=== PATIENT | female | born 1975 | race Caucasian/White ===

== ENCOUNTER 2016-11-08 11:08 | Day surgery (SDC) | payer OTHER ==
[2016-11-08] VITALS (13 sets, daily range): BP systolic 103–122; BP diastolic 55–66; PULSE 74–94; RESP 16–26; Ht 154.9 cm; Wt 71.3 kg
[~2016-11-08] VITALS: Ht 154.9 cm; Wt 71.3 kg
[~2016-11-08 11:08] MED LIST: DOCU-144 PO; EPHEDrine SULFATE 50 MG/5 ML SYG ONE; FER325 PO; NEXIUM
[2016-11-08] MEDS ORDERED: ONDANSETRON 4 MG INJ IV PRN (13:30)
[2016-11-08] MEDS ORDERED: PROPOFOL 20 ML ONE (13:30)
[2016-11-08] MEDS ORDERED: METOCLOPRAMIDE 10 MG INJ ONE (13:30)
[2016-11-08] MEDS ORDERED: MIDAZOLAM 1 MG/ML 2 ML INJ ONE (13:30)
[2016-11-08] MEDS ORDERED: ONDANSETRON 4 MG INJ ONE (13:30)
[2016-11-08] MEDS ORDERED: OXYCODONE/ACETAMINOPHEN (5/325) TAB PO PRN (13:30)
[2016-11-08] MEDS ORDERED: DIPHENHYDRAMINE 50 MG INJ IV PRN (13:30)
[2016-11-08] MEDS ORDERED: HYDROmorphONE (0.2 MG/ML) 10ML SYG IV PRN ×3 (13:30)
[2016-11-08] MEDS ORDERED: LABETALOL HCL 20MG INJ IV PRN (13:30)
[2016-11-08] MEDS ORDERED: FENTAnyl 50 MCG/ML VIAL ONE (13:30)
[2016-11-08] MEDS ORDERED: FENTAnyl 50 MCG/ML VIAL IV PRN ×3 (13:30)
[2016-11-08] MEDS ORDERED: CEFAZOLIN 1 GM INJ ONE (13:30)
[2016-11-08] MEDS ORDERED: DEXAMETHASONE 4 MG/ML 1 ML INJ ONE (13:30)
[2016-11-08] MEDS ORDERED: EPHEDrine SULFATE 50 MG/5 ML SYG IV PRN (13:30)
[2016-11-08] MEDS ORDERED: ALBUMIN HUMAN 5% 250 ML IV PRN (13:30)
[2016-11-08] MEDS ORDERED: MEPERIDINE 25 MG INJ IV PRN (13:30)
[2016-11-08] MEDS ORDERED: KETOROLAC 30 MG INJ ONE (13:30)
[2016-11-08] MEDS ORDERED: KETOROLAC 30 MG INJ IV PRN (14:00)
[2016-11-08] MEDS ORDERED: IBUPROFEN 600 MG TAB PO PRN (14:00)
--- NOTE | 2016-11-08 14:35 | OPR ---
Date/Time of Note Date/Time of Note DATE: 11/08/16 TIME: 14:21 Operative Report Free Text/Dictation 41 years old admitted for a diagnostic curettage due to normal uterine bleeding and has been diagnosed with uterine fibroid undergoing a diagnostic curettage to rule out endometrial aplasia or endometrial carcinoma Procedure Date: Nov 08, 2016 Preoperative Diagnosis Abnormal uterine bleeding Postoperative Diagnosis Pending pathology report Operation Performed Diagnostic curettage, under satisfactory general anesthesia patient prepped and draped and placed in dorsal lithotomy position bimanual pelvic examination performed, relaxed vaginal outlet mild cystorectocele uterus enlarged to 10 weeks size,weighted speculum introduced into the vagina anterior cervical lip grasped by Rick tenaculum uterine cavity sounded measured 14 cm cervical dilatation further advanced with a Hanks dilator endometrial curetting started at 12:00 counter clockwise, moderate amount of a specimen obtained submitted to the pathology, blood loss less than 5 cc patient tolerated procedure well transferred to recovery room in a good condition Surgeon: LEON FRANCO MD Anesthesia Type: general Anesthesiologist: LARISSA ONEIL MD Estimated Blood Loss: minimal Transfusion Required: yes Grafts/Implants: none Complications: no Pt Condition Post Procedure: stable Disposition: other LEON FRANCO MD Nov 08, 2016 14:32
== END 2016-11-08 15:59 | disposition home or self-care (01) ==
LOC: SDS 11:08
PROVIDERS: ATTEND Obstetrics & Gynecology
DX: N93.9 Abnormal uterine and vaginal bleeding, unspecified (principal)
CPT/HCPCS: 58120; 84703; 88305; J0690; J1100; J1885; J2250; J2405; J2765; J3010; Z7512; Z7610

== ENCOUNTER 2017-04-04 05:22 | Inpatient (IN) | END 2017-04-07 14:45 | disposition home or self-care (01) | DRG 743 ==